=== PATIENT | female | born 1970 | race African-American/Black ===

== ENCOUNTER 2021-09-24 09:26 | Outpatient (CLI) | payer OTHER ==
--- NOTE | 2021-09-24 12:37 | Mammography Report ---
DEXA BONE DENSITY SCAN INDICATION: PERIMENOPAUSAL. COMPARISON: None available. LUMBAR SPINE (L1-L4): Bone mineral density (BMD) is 1.372 g/cm2. T-score is 2.8 (standard deviations of Young Adult mean). Z-score is 3.7 (standard deviations of Age Matched mean). LEFT FEMORAL NECK: Bone mineral density (BMD) is 0.867 g/cm2. T-score is 0.2 (standard deviations of Young Adult mean). Z-score is 1.0 (standard deviations of Age Matched mean). IMPRESSION: 1. WHO Classification: Normal bone density. Fracture Risk: Not Increased. Signer Name: Jorge A Pelaez MD Signed: 09/24/2021 12:33 PM Workstation Name: [id number]
== END 2021-09-24 09:27 | disposition home or self-care (01) ==
LOC: MAMMO 09:26
PROVIDERS: ATTEND Obstetrics & Gynecology
DX: M81.0 Age-related osteoporosis without current pathological fracture (principal)
CPT/HCPCS: 77080